=== PATIENT | female | born 1985 | race Native Hawaiian/Other Pacific Islander ===

== ENCOUNTER 2017-07-18 16:24 | Emergency (ER) | payer OTHER ==
[~2017-07-18] VITALS: Ht 167.6 cm; Wt 79.4 kg
[2017-07-18 16:27] VITALS: TEMP 98.4
[2017-07-18 17:02] LABS: PLATELET COUNT 302 K/uL (152-353)
[2017-07-18 17:06] LABS: POTASSIUM 3.4 mmol/L (3.6-5.2); SODIUM 140 mmol/L (136-145)
[2017-07-18 17:18] LABS: PARTIAL THROMBOPLASTIN TIME 26.3 SECONDS (24.5-33.6)
[2017-07-18 18:11] VITALS: BP 120/73
== END 2017-07-18 18:11 | disposition home or self-care (01) ==
LOC: ED 16:24
PROVIDERS: Emergency Medicine
DX: M94.0 Chondrocostal junction syndrome [Tietze] (principal)
CPT/HCPCS: 36415; 80053; 80307; 81000; 82550; 84484; 85027; 85379; 85610; 85730; 93005; 99283; G0479

== ENCOUNTER 2017-09-14 16:27 | Outpatient (CLI) | payer OTHER ==
[2017-09-14 16:51] LABS: PLATELET COUNT 330 K/uL (152-353)
[2017-09-14 17:33] LABS: POTASSIUM 4.1 mmol/L (3.6-5.2)
== END 2017-09-14 19:41 | disposition home or self-care (01) ==
LOC: LABW 16:27 → RAD 16:27 → LABW 19:41
PROVIDERS: Family Medicine
DX: R10.84 Generalized abdominal pain (principal); R05 Cough; R63.4 Abnormal weight loss
CPT/HCPCS: 36415; 80053; 81000; 82306; 84439; 84443; 85027